=== PATIENT | male | born 1980 | race Caucasian/White ===

== ENCOUNTER 2017-02-22 10:39 | Emergency (ER) | payer MEDICAID ==
[~2017-02-22] VITALS: Ht 167.6 cm; Wt 57.5 kg
[~2017-02-22 10:39] MED LIST: CEPH-443 PO; IBUP800T25 PO
[2017-02-22 10:41] VITALS: Ht 167.6 cm; Wt 57.5 kg
[2017-02-22] MEDS ORDERED: LIDOCAINE 1% (MDV) 20 ML INJ SC ONE (11:00)
[2017-02-22] MEDS ORDERED: CLIN-73 PO (11:40)
[2017-02-22] MEDS ORDERED: BACI28.34 TOP (11:40)
[2017-02-22] MEDS ORDERED: HYDR-906 PO (11:40)
--- NOTE | 2017-02-22 12:00 | ERD ---
ER Documentation Chief Complaint Chief Complaint dental pain and lump on right cheek x5 days HPI This patient is a 36-year-old male presenting to the emergency department for dental pain and abscess to the right lower jaw for the past 5 days. Symptoms are worsening, intermittent pain associated with it. He has had similar symptoms in the past. The patient additionally mentions that he has a abrasion over the right eyebrow after hitting his head against his night stand this morning upon waking up. He did not lose consciousness. He denies other symptoms or injuries at this time. He denies fevers, chills, or other symptoms at this time. ROS All systems reviewed and are negative except as per history of present illness. Medications Home Meds Active Scripts Bacitracin* (Bacitracin Zinc Oint*) 28.35 Gm Oint, 1 APPLIC TOP BID, #1 TUB APPLI TO Prov:DONATO ZHAO PA-C 02/22/17 Hydrocodone/Acetaminophen (Tovey 5-325 Tablet) 1 Each Tablet, 1 TAB PO Q6H Y for PAIN, #7 TAB Prov:DONATO ZHAO PA-C 02/22/17 Clindamycin Hcl* (Clindamycin Hcl*) 300 Mg Capsule, 300 MG PO TID for 7 Days, # 21 CAP Prov:DONATO ZHAO PA-C 02/22/17 Cephalexin* (Keflex*) 500 Mg Capsule, 500 MG PO QID for 7 Days, CAP Prov:ERUM BETH[employer] OFFICER 05/04/15 Ibuprofen* (Motrin*) 800 Mg Tab, 800 MG PO Q6H Y for PAIN AND OR ELEVATED TEMP, #30 TAB Prov:ERUM BETH [employer] OFFICER 05/04/15 Allergies Allergies: Coded Allergies: No Known Allergy (Unverified , 05/04/15) PMhx/Soc History of Surgery: No Anesthesia Reaction: No Hx Neurological Disorder: No Hx Respiratory Disorders: No Hx Cardiac Disorders: No Hx Psychiatric Problems: No Hx Miscellaneous Medical Probl: No Hx Alcohol Use: No Hx Substance Use: No Hx Tobacco Use: No Physical Exam Vitals Vital Signs Date Time Temp Pulse Resp B/P Pulse Ox O2 Delivery O2 Flow Rate FiO2 02/22/17 10:41 98.3 60 18 135/83 100 Physical Exam Const: Nontoxic, well-appearing male in no acute distress. Head: Small superficial abrasion noted over the right eyebrow. There is a 1 cm x 1 cm fluctuant abscess noted to the exterior right lower mandible. No surrounding erythema. Eyes: Normal Conjunctiva ENT: Normal External Ears, Nose and Mouth. There is poor dentition noted in the mouth. There is a probable early dental abscess noted to the right lower molar. Neck: Full range of motion..~ No meningismus. Ext: No cyanosis, or edema Neur: Awake and alert Psych: Normal Mood and Affect Results 24 hrs Current Medications Medications (Trade) Dose Ordered Sig/Mellissa Route PRN Reason Start Time Stop Time Status Last Admin Dose Admin Lidocaine (Xylocaine 1% (Mdv) 20 ml) 20 ml ONCE ONCE SC 02/22/17 11:00 02/22/17 11:01 DC Procedures/MDM 36 old male presented to the emergency department for dental abscess as well as exterior facial abscess. Will examination does show a 1 cm x 1 cm fluctuant abscess to the right lower mandibular area which appears to be fluctuant and ready to drain at this time. Abscess drained successfully. See procedure note below. Patient was stable for discharge with a prescription for clindamycin and medication for pain. No evidence of deep tissue infection, osteomyelitis, sepsis, or other emergent conditions. No evidence of life-threatening pathology at time of discharge. Pt/family in agreement with discharge plan/ diagnosis. Pt/family advised to return immediately with any new or worsening symptoms. Follow-up with primary care physician within the next 1-2 days. Abscess Incision and Drainage with irrigation by me: Location: Right lower mandible Anesthesia: Local 1% Lidocaine Technique: Irrigated. Disrupted loculations w/ instrumentation Packing: None Complications: Neurovascularly intact post procedure 48 hour wound check. Scar minimization instructions given. Patient's skin symptoms have stabilized while they have been evaluated in the department and are appropriate for outpatient care and work up. Exam and w/u not consistent w/ sepsis, deep space infection, or foreign body. Departure Diagnosis: Primary Impression: Abscess Additional Impression: Tooth disease Condition: Fair Patient Instructions: Abscess, Incision And Drainage, Tooth Abscess [facility] Usted se wang hecho un examen mdico de control que le indica que no est en satnam condicin que requiera tratamiento urgente en el Departamento de Emergencia. Un estudio ms profundo y el tratamiento de flood condicin pueden esperar sin ningn riesgo hasta que usted sea atendida/o en el consultorio de flood mdico o satnam cl alfredo. Es responsabilidad suya arreglar satnam ramon para el seguimiento del leena. MANEJO DE CONDICIONES NO URGENTES EN EL FUTURO 1) Si usted tiene un mdico de atencin primaria: Usted debera llamar a flood mdico de atencin primaria antes de venir al departamento de emergencia. Despus de las horas de consultorio, flood doctor o flood asociado/a est disponible por telfono. El mdico o enfermero de lena en el servicio telefnico puede asesorarle por darrell medio para atender el problema, o elena contrario se puede programar satnam ramon. 2) Si usted no tiene un mdico de atencin primaria: Llame al mdico o clnica de referencia que aparece abajo quinton las horas de consultorio para hacer satnam ramon para que le vean. CLINICAS: [facility] [phone] [facility] [phone] [facility] [facility] [phone] [facility]. [place] [phone] [facility]. [place] [phone] [facility]. [phone] [address] [facility] ([facility] walk in clinic) Additional Instructions: Llame al doctor MAANA y lisa satnam RAMON PARA DENTRO DE 1-2 NICHOLS.Dgale a la secretaria que nosotros le instruimos hacer esta rmaon.Avise o llame si flood condicin se empeora antes de la ramon. Regresa aqui si peor o no mejor. DONATO ZHAO PA-C Feb 22, 2017 11:59
== END 2017-02-22 12:04 | disposition left against medical advice (07) ==
LOC: FTE 10:39
DX: K04.6 Periapical abscess with sinus (principal)
CPT/HCPCS: 41800; Z7502; Z7610

== ENCOUNTER 2017-02-25 17:50 | Emergency (ER) | payer SELFPAY ==
[~2017-02-25] VITALS: Ht 157.5 cm; Wt 75.0 kg
[~2017-02-25 17:50] MED LIST changes: +BACI28.34 TOP; +CLIN-73 PO; +HYDR-906 PO
[2017-02-25 18:02] VITALS: Ht 157.5 cm; Wt 75.0 kg
== END 2017-02-25 20:24 | disposition left against medical advice (07) ==
LOC: FTE 17:50
DX: Z53.21 Procedure and treatment not carried out due to patient leaving prior to being seen by health care provider (principal)